=== PATIENT | male | born 1970 | race Caucasian/White ===

== ENCOUNTER → 2017-06-10 | Outpatient (CLI) | payer OTHER ==
[~2017-06-10] MED LIST: ADVIN25050 INH; COEN10CA4 PO; LOSA50TA6 PO; MONT1TAB3 PO; MULT-506 PO; OMEG10007 PO
--- NOTE | 2017-06-10 15:48 | DIAGNOSTIC IMAGING REPORT ---
CHEST 2 VIEWS ROUTINE CLINICAL HISTORY: R05 [id number] CHEST CONGESTION COMPARISON STUDY: 11/27/2015 FINDINGS: The cardiac and mediastinal contours are normal. There is no evidence of failure. No pleural effusions are visualized.[ The patient is mildly hyperinflated. There is minimal prominence of interstitial markings within the right midlung zone. A minimal inflammatory process cannot be excluded. IMPRESSION: 1. Hyperinflation 2. Subtle prominence of the interstitial markings within the right midlung zone. A minimal inflammatory process cannot be excluded. Electronically signed by: Thuan Sweet M.D. 06/10/2017 3:47 PM Dictated Date/Time: 06/10/2017 3:46 PM
== END | disposition home or self-care (01) ==
LOC: C.RADBC 15:26
PROVIDERS: ATTEND Physician Assistant Medical
DX: R05 Cough (principal); R91.8 Other nonspecific abnormal finding of lung field

== ENCOUNTER → 2017-08-23 | Outpatient (CLI) | payer OTHER ==
[2017-08-23 17:01] LABS: URINE APPEARANCE CLEAR (CLEAR); URINE BILIRUBIN NEG (NEG); URINE COLOR YELLOW; URINE NITRITE NEG (NEG); URINE SPECIFIC GRAVITY 1.013 (1.000-1.030); UROBILINOGEN NEG (NEG)
[2017-08-23 17:03] LABS: REVIEW REQ? NO
[2017-08-23 17:04] LABS: MANUAL MICROSCOPIC REQUIRED? NO
== END | disposition home or self-care (01) ==
LOC: C.LABBC 13:50
PROVIDERS: ATTEND Internal Medicine
DX: R39.9 Unspecified symptoms and signs involving the genitourinary system (principal)

== ENCOUNTER → 2018-01-24 | Outpatient (CLI) | payer OTHER ==
--- NOTE | 2018-01-24 11:44 | DIAGNOSTIC IMAGING REPORT ---
TWO VIEW CHEST CLINICAL HISTORY: Asthma. FINDINGS: PA and lateral chest radiographs are compared to study dated 06/10/2017. The cardiomediastinal silhouette is unremarkable. There is minimal left basilar atelectasis. The lungs and pleural spaces are otherwise clear. There is no pneumothorax. The bony thorax appears intact. IMPRESSION: No active disease in the chest. Electronically signed by: Zach Oseguera M.D. 01/24/2018 11:42 AM Dictated Date/Time: 01/24/2018 11:42 AM
== END | disposition home or self-care (01) ==
LOC: C.RAD1850 11:31
PROVIDERS: ATTEND Physician Assistant
DX: J45.909 Unspecified asthma, uncomplicated (principal)